=== PATIENT | female | born 1960 | race Caucasian/White ===

== ENCOUNTER 2016-05-02 12:21 | Emergency (ER) | payer BC ==
[~2016-05-02] VITALS: Wt 58.0 kg
[~2016-05-02 12:21] MED LIST: IBUP-1542 PO; [UNRECOGNIZED DRUG - CODE] PO
[2016-05-02 13:24] VITALS: TEMP 98.4
--- NOTE | 2016-05-02 14:02 | RADRPT ---
PROCEDURE: Chest Radiograph. CLINICAL INDICATION: Chest pain TECHNIQUE: Single frontal chest radiograph. COMPARISON: None available FINDINGS: The cardiomediastinal silhouette is within normal limits. No infiltrate or effusion is seen. Th e bones are intact. IMPRESSION: 1. Unremarkable chest radiograph. RPTAT: KK .Jamshid Laurent MD, MD Date Time Electronically viewed and signed by .Jamshid Laurent MD, on 05/02/2016 14:02 .B/
[2016-05-02 14:03] LABS: ADD SCAN DIFF NO
[2016-05-02 14:04] LABS: BASOPHILS % 0.4 % (0.0-2.0); EOSINOPHILS # 0.2 10^3/ul (0.0-0.5); EOSINOPHILS % 1.9 % (0.0-7.0); HEMATOCRIT 36.8 % (37.0-47.0); HEMOGLOBIN 12.9 g/dl (12.0-16.0); LYMPHOCYTES # 1.8 10^3/ul (0.8-2.9); LYMPHOCYTES % 23.5 % (15.0-51.0); MEAN CORPUSCULAR HEMOGLOBIN 30.4 pg (29.0-33.0); MEAN CORPUSCULAR HGB CONC 35.1 g/dl (32.0-37.0); MEAN CORPUSCULAR VOLUME 86.6 fl (82.0-101.0); MEAN PLATELET VOLUME 10.6 fl (7.4-10.4); MONOCYTE # 0.5 10^3/ul (0.3-0.9); MONOCYTES % 6.3 % (0.0-11.0); NEUTROPHIL # 5.3 10^3/ul (1.6-7.5); NEUTROPHILS % 67.6 % (39.0-77.0); PLATELET COUNT 241 10^3/UL (140-415); RED BLOOD COUNT 4.25 10^6/ul (4.20-5.40); RED CELL DISTRIBUTION WIDTH 12.3 % (11.5-14.5); WHITE BLOOD COUNT 7.8 10^3/ul (4.8-10.8)
[2016-05-02 14:13] LABS: CHLORIDE 103 mmol/L (97-110); POTASSIUM 4.3 mmol/L (3.5-5.1); SODIUM 140 mmol/L (135-144)
[2016-05-02 14:15] LABS: INR 0.92; PROTIME 12.4 Sec (12.2-14.2)
[2016-05-02 14:16] LABS: ANION GAP 14 (8-16); CARBON DIOXIDE 27 mmol/L (21-31); CREATININE 0.71 mg/dl (0.44-1.00); PARTIAL THROMBOPLASTIN TIME 24.7 Sec (25.0-35.0)
[2016-05-02 14:17] LABS: BLOOD UREA NITROGEN 19 mg/dl (7-20); CALCIUM 8.9 mg/dl (8.4-10.2); GLUCOSE 244 mg/dl (70-220)
[2016-05-02 14:25] LABS: CK-MB 0.66 ng/ml (0.0-2.4)
[2016-05-02 14:34] LABS: CREATINE KINASE < 20 IU/L (23-200); TROPONIN-I < 0.012 ng/ml (0.00-0.12)
[2016-05-02] MEDS ORDERED: BENA10TA48 PO (14:39)
[2016-05-02] MEDS ORDERED: METO50TA16 PO ×2 (14:39→14:53)
[2016-05-02] MEDS ORDERED: GLIP-95 PO (14:40)
[2016-05-02] MEDS ORDERED: ASPI-664 PO (14:40)
[2016-05-02] MEDS ORDERED: SIMV10TA PO (14:41)
[2016-05-02] MEDS ORDERED: MTF1000T PO (14:42)
[2016-05-02] MEDS ORDERED: METF500T4 PO (14:43)
--- NOTE | 2016-05-02 14:53 | ERD ---
ER Documentation Chief Complaint Date/Time DATE: 05/02/16 TIME: 14:50 Chief Complaint LEFT CHEST PAIN AND LEFT ARM PAIN WITH HIGH BLOOD PRESSURE. NO NEURO DEF HPI This is a 55-year-old female presents to the emergency room for evaluation of chest pain, and high blood pressure. The patient does state that she has intermittent chest pain on and off for the past year. She states that her chest pain today is no different from the chest pain she has had over the past year however she did run out of her medication, metoprolol. She states that she saw her blood pressure was elevated this morning. Although she had no headache or blurred vision she came to the ER for evaluation. ROS All systems reviewed and are negative except as per history of present illness. Medications Home Meds Reported Medications Metformin* (Glucophage*) 500 Mg Tab, 500 MG PO BID, #30 TAB 05/02/16 Simvastatin* (Zocor*) 10 Mg Tablet, 10 MG PO QHS, #30 TAB 05/02/16 Aspirin* (Aspirin* EC) 81 Mg Tablet.dr, 81 MG PO DAILY, TAB 05/02/16 Glipizide* (Glipizide*) 10 Mg Tablet, 10 MG PO QAM, TAB 05/02/16 Metoprolol Succinate* (Toprol XL*) 50 Mg Tab.er.24h, 50 MG PO DAILY, #30 TAB 05/02/16 Benazepril Hcl* (Benazepril Hcl*) 10 Mg Tablet, 10 MG PO DAILY, #30 TAB 05/02/16 Discontinued Reported Medications Metformin* (Glucophage*) 1,000 Mg Tablet, 1000 MG PO BID, #60 TAB 05/02/16 Aspirin (Ec Aspirin) 325 Mg Tablet.dr, 325 MG PO 02/10/11 Discontinued Scripts Ibuprofen* (Motrin*) 600 Mg Tab, 600 MG PO Q6H Y for PAIN AND OR ELEVATED TEMP, #30 Prov:PREETI MARTIN NP 10/10/14 Allergies Allergies: Coded Allergies: No Known Allergy (Unverified , 02/10/11) PMhx/Soc History of Surgery: No Anesthesia Reaction: No Hx Neurological Disorder: No Hx Respiratory Disorders: No Hx Cardiac Disorders: No Hx Psychiatric Problems: No Hx Miscellaneous Medical Probl: Yes (DIABETES) Hx Alcohol Use: No Hx Substance Use: No Hx Tobacco Use: No Physical Exam Vitals Vital Signs Date Time Temp Pulse Resp B/P Pulse Ox O2 Delivery O2 Flow Rate FiO2 05/02/16 12:27 98.2 80 21 180/74 99 Physical Exam INITIAL VITAL SIGNS: Reviewed by me GENERAL: The patient is well developed and appropriate for usual state of health in no apparent distress HEENT: Pupils equal, round, and reactive to light. EOMI. There is no scleral icterus. NECK: C-spine is soft and supple, there is no meningismus. There is no cervical lymphadenopathy. LUNGS: Clear to auscultation bilaterally. There are no rales, wheezes or rhonchi. HEART: Regular rate and rhythm, no murmurs, clicks, rubs or gallops. ABDOMEN: Soft, non-tender, non-distended. There are bowel sounds in all four quadrants. No rebound or guarding. EXTREMITIES: There is no peripheral cyanosis or edema. No focal swelling or erythema. NEUROLOGICAL: The patient moves all four extremities with 5/5 strength. Cranial nerves II - XII are intact. Normal gait. Alert and oriented SKIN: There is no apparent rash or petechiae. HEME/LYMPHATIC: There is no evidence of excessive bruising or lymphedema. PSYCHIATRIC: The patient does not appear anxious or depressed. Result Diagram: 05/02/16 1350 05/02/16 1350 Results 24 hrs Laboratory Tests Test 05/02/16 13:50 Activated Partial Thromboplast Time 24.7Sec Anion Gap 14 Basophils # 0.010^3/ul Basophils % 0.4% Blood Urea Nitrogen 19mg/dl Calcium Level 8.9mg/dl Carbon Dioxide Level 27mmol/L Chloride Level 103mmol/L Creatine Kinase < 20IU/L Creatine Kinase Index Creatinine 0.71mg/dl Creatinine Kinase MB (Mass) 0.66ng/ml Eosinophils # 0.210^3/ul Eosinophils % 1.9% Glucose Level 244mg/dl Hematocrit 36.8% Hemoglobin 12.9g/dl INR International Normalized Ratio 0.92 Lymphocytes # 1.810^3/ul Lymphocytes % 23.5% Mean Corpuscular Hemoglobin 30.4pg Mean Corpuscular Hemoglobin Concent 35.1g/dl Mean Corpuscular Volume 86.6fl Mean Platelet Volume 10.6fl Monocytes # 0.510^3/ul Monocytes % 6.3% Neutrophils # 5.310^3/ul Neutrophils % 67.6% Nucleated Red Blood Cells # 0.010^3/ul Nucleated Red Blood Cells % 0.0/100WBC Platelet Count 64762^3/UL Potassium Level 4.3mmol/L Prothrombin Time 12.4Sec Prothrombin Time Ratio 1.0 Red Blood Count 4.2510^6/ul Red Cell Distribution Width 12.3% Sodium Level 140mmol/L Troponin I < 0.012ng/ml White Blood Count 7.810^3/ul Procedures/MDM EKG: Rate/Rhythm: [Normal Sinus Rhythm] QRS, ST, T-waves: [No changes consistent w/ acute ischemia] Impression: [No evidence of ischemia or arrhythmia] Chest X-ray 1V Interpreted by me: Soft Tissue: No acute abnormalities Bones: No acute abnormalities Mediastinum/Cardiac Silhouette/Lungs: [No acute abnormalities] This 45-year-old female presents to the emergency room for evaluation of chest pain, and medication refill. The patient did run out of her metoprolol 15 mg. This patient is hemodynamically stable, no acute distress, not hypoxic, and EKG is nonischemic. Lab work also shows negative troponin. Chest x-ray is also clear. This patient was given Toradol with complete resolution of her pain. This patient will be discharged at this time with instructions to follow-up with her primary care physician to establish stress test as an outpatient. This patient will also be given a prescription for metoprolol 50 mg. Departure Diagnosis: Primary Impression: Chest pain Additional Impressions: Medication refill Hyperglycemia due to type 2 diabetes mellitus Condition: YESSICA Nava DO May 02, 2016 14:53
[2016-05-02 15:04] VITALS: BP 119/59; PULSE 67; RESP 13
== END 2016-05-02 15:09 | disposition home or self-care (01) ==
LOC: E/R 12:21
DX: R07.9 Chest pain, unspecified (principal); E10.65 Type 1 diabetes mellitus with hyperglycemia; Z76.0 Encounter for issue of repeat prescription; Z79.82 Long term (current) use of aspirin; Z79.84 Long term (current) use of oral hypoglycemic drugs
CPT/HCPCS: 36415; 71010; 80048; 82550; 82553; 84484; 85025; 85610; 85730; 93005; Z7502; Z7610

== ENCOUNTER 2016-06-26 05:27 | Emergency (ER) | payer BC ==
[~2016-06-26] VITALS: Wt 67.0 kg
[~2016-06-26 05:27] MED LIST changes: +ASPI-664 PO; +BENA10TA48 PO; +GLIP-95 PO; -IBUP-1542 PO; +METF500T4 PO; +METO50TA16 PO; +SIMV10TA PO; -[UNRECOGNIZED DRUG - CODE] PO
[2016-06-26] MEDS ORDERED: ASPIRIN 81 MG TAB PO STA (05:43)
[2016-06-26] MEDS ORDERED: SOD CHLORIDE 0.9% 1,000 ML IV STA (06:12)
--- NOTE | 2016-06-26 06:21 | ERD ---
ER Documentation Chief Complaint Date/Time DATE: 06/26/16 TIME: 06:13 Chief Complaint CP since 3AM HPI 56-year-old female, diabetic, hypertensive presents to the ED via ambulance for evaluation of chest pain. Yesterday afternoon her son was diagnosed with " heart cancer" and she understandably became upset and developed nonradiating, moderate, sharp and pressure-like left-sided chest pain with mild shortness of breath but no nausea, vomiting or diaphoresis. No relieving or exacerbating factors. Denies leg pain or swelling. No URI symptoms or cough. No abdominal pain or back pain. No headache or neck pain. Denies visual changes, focal weakness or numbness. No fevers or chills. ROS All systems reviewed and are negative except as per history of present illness. Medications Home Meds Active Scripts Metoprolol Succinate* (Toprol XL*) 50 Mg Tab.er.24h, 50 MG PO DAILY, #30 TAB Prov:YESSICA BONILLA 05/02/16 Reported Medications Metformin* (Glucophage*) 500 Mg Tab, 500 MG PO BID, #30 TAB 05/02/16 Simvastatin* (Zocor*) 10 Mg Tablet, 10 MG PO QHS, #30 TAB 05/02/16 Aspirin* (Aspirin* EC) 81 Mg Tablet.dr, 81 MG PO DAILY, TAB 05/02/16 Glipizide* (Glipizide*) 10 Mg Tablet, 10 MG PO QAM, TAB 05/02/16 Metoprolol Succinate* (Toprol XL*) 50 Mg Tab.er.24h, 50 MG PO DAILY, #30 TAB 05/02/16 Benazepril Hcl* (Benazepril Hcl*) 10 Mg Tablet, 10 MG PO DAILY, #30 TAB 05/02/16 Allergies Allergies: Coded Allergies: No Known Allergy (Unverified , 02/10/11) PMhx/Soc Reviewed in chart. As per HPI. History of Surgery: Yes (c section) Anesthesia Reaction: No Hx Neurological Disorder: No Hx Respiratory Disorders: No Hx Cardiac Disorders: No Hx Psychiatric Problems: No Hx Miscellaneous Medical Probl: Yes (DIABETES) Hx Alcohol Use: No Hx Substance Use: No Hx Tobacco Use: No Smoking Status: Never smoker FmHx No stroke or sudden cardiac . As per HPI. Physical Exam Vitals Vital Signs Date Time Temp Pulse Resp B/P Pulse Ox O2 Delivery O2 Flow Rate FiO2 06/26/16 06:34 84 16 91/53 96 Room Air 06/26/16 05:42 97.7 94 20 149/79 100 Physical Exam Const: Alert, anxious, crying in moderate distress. Head: Atraumatic Eyes: Normal Conjunctiva ENT: Normal External Ears, Nose and Mouth. Neck: Full range of motion. Nontender. No JVD. Resp: Breath sounds are equal and clear to auscultation bilaterally Cardio: Regular rate and rhythm, no murmurs Chest Wall: No chest wall tenderness, ecchymosis or bruising Abd: Soft, non tender, non distended. Normal bowel sounds. No rebound or guarding. No masses or abnormal pulsations. Skin: No petechiae or rashes Back: No midline or flank tenderness Ext: No cyanosis, or edema. No calf swelling or tenderness. Neur: Awake and alert. No focal deficit observed. Motor and sensory equal bilaterally. Psych: Anxious, crying. Denies suicidal or homicidal ideations. Result Diagram: 06/26/16 0552 06/26/16 0552 Results 24 hrs Laboratory Tests Test 06/26/16 05:52 06/26/16 08:15 White Blood Count 11.110^3/ul Red Blood Count 4.6810^6/ul Hemoglobin 14.5g/dl Hematocrit 40.7% Mean Corpuscular Volume 87.0fl Mean Corpuscular Hemoglobin 31.0pg Mean Corpuscular Hemoglobin Concent 35.6g/dl Red Cell Distribution Width 12.4% Platelet Count 27837^3/UL Mean Platelet Volume 11.6fl Neutrophils % 86.1% Lymphocytes % 7.9% Monocytes % 3.9% Eosinophils % 1.2% Basophils % 0.4% Nucleated Red Blood Cells % 0.0/100WBC Neutrophils # 9.610^3/ul Lymphocytes # 0.910^3/ul Monocytes # 0.410^3/ul Eosinophils # 0.110^3/ul Basophils # 0.010^3/ul Nucleated Red Blood Cells # 0.010^3/ul Sodium Level 136mmol/L Potassium Level 4.7mmol/L Chloride Level 103mmol/L Carbon Dioxide Level 22mmol/L Anion Gap 16 Blood Urea Nitrogen 22mg/dl Creatinine 0.71mg/dl Glucose Level 452mg/dl Calcium Level 9.7mg/dl Troponin I 0.026ng/ml Bedside Glucose 324mg/dL Current Medications Medications (Trade) Dose Ordered Sig/Brenda Route PRN Reason Start Time Stop Time Status Last Admin Dose Admin Aspirin 162 mg 162 mg ONCE STAT PO 06/26/16 05:43 06/26/16 05:45 DC 06/26/16 06:05 Sodium Chloride (NS) 1,000 ml @ 1,000 mls/hr Q1H STAT IV 06/26/16 06:12 06/26/16 07:11 DC 06/26/16 06:17 Lorazepam (Ativan) 1 mg ONCE ONCE IV 06/26/16 06:30 06/26/16 06:31 DC 06/26/16 06:17 Insulin Human Lispro (Humalog) 10 unit ONCE STAT SC 06/26/16 08:22 06/26/16 08:24 DC RHYTHM STRIP INTERPRETATION: Time: 06: 20. Sinus rhythm. Ventricular rate 73. No ectopy. Indication: Chest pain. EKG: TIME: 05:33. Sinus tachycardia ventricular rate 108. No ectopy. Normal OR QRS. No axis deviation. No ST-T wave changes. EP Interpretation: Sinus tachycardia otherwise normal ECG.. IMAGING: PROCEDURE: CHEST - 1 VIEW CLINICAL INDICATION: 56-year-old female with chest pain. TECHNIQUE: A single frontal AP portable view of the chest was performed. The images were reviewed on a PACS workstation. COMPARISON: Chest x-ray May 02 1016. FINDINGS: The cardiomediastinal silhouette has a normal appearance. There is no evidence for an infiltrate. There is no evidence for congestive heart failure. There is no evidence for pneumothorax mild degenerative changes are present within the spine. IMPRESSION: 1. No evidence for active cardiopulmonary disease. 2. Mild degenerative changes within the spine. .Arie Mortensen MD, MD Date Time Electronically viewed and signed by .Arie Mortensen MD, on 06/26/2016 06:28 .M/ Procedures/MDM DOCUMENTS REVIEWED: ED nurse, prior ED, prior records REEXAMINATION/REEVALUATION: Time: 08:30. Doing well. Sleeping but easily arousable. No further chest pain. Sinus rhythm without ectopy. MEDICAL DECISION MAKIN-year-old female, diabetic, hypertensive presents to the ED via ambulance for evaluation of chest pain. A broad differential for chest pain is considered but most likely secondary to anxiety and relieved completely with anxiolytics. No radiographic evidence of pneumonia or pneumothorax. No ischemic EKG changes or elevated troponin. Low risk for pulmonary embolism. Doubt aortic dissection. Diabetic hyperglycemia without DKA or HONK likely due to noncompliance. Improved with intravenous hydration and she was given her regular morning insulin dose of Humalog 10 units. Stable for discharge precautionary instructions and urgent outpatient follow-up within 72 hours for further risk stratification. Counseled patient regarding diagnostic workup, diagnosis and need for followup. Understands to return to ED if symptoms recur, worsen or any other concerns. Departure Diagnosis: Primary Impression: Chest pain with low risk for cardiac etiology Additional Impressions: Hyperglycemia due to type 2 diabetes mellitus Diabetes mellitus intermission coordinator insulin use: with snf use Qualified Code: E11.65 - Type 2 diabetes mellitus with hyperglycemia, with long-term current use of insulin Essential hypertension Condition: Stable (Improved) ROSALINA GUERRA MD June 26, 2016 06:20
--- NOTE | 2016-06-26 06:29 | RADRPT ---
PROCEDURE: CHEST - 1 VIEW CLINICAL INDICATION: 56-year-old female with chest pain. TECHNIQUE: A single frontal AP portable view of the chest was performed. The images were reviewed on a PACS workstation. COMPARISON: Chest x-ray May 02 1016. FINDINGS: The cardiomediastinal silhouette has a normal appearance. There is no evidence for an infiltrate. There is no evidence for congestive heart failure. There is no evidence for pneumothorax mild degene rative changes are present within the spine. IMPRESSION: 1. No evidence for active cardiopulmonary disease. 2. Mild degenerative changes within the spine. .Arie Mortensen MD, MD Date Time Electronically viewed and signed by .Arie Mortensen MD, on 06/26/2016 06:28 .Giselle/
[2016-06-26] MEDS ORDERED: LORAZEPAM 2 MG INJ IV ONE (06:30)
[2016-06-26 07:17] LABS: ADD SCAN DIFF NO
[2016-06-26 07:27] LABS: BASOPHILS % 0.4 % (0.0-2.0); EOSINOPHILS # 0.1 10^3/ul (0.0-0.5); EOSINOPHILS % 1.2 % (0.0-7.0); HEMATOCRIT 40.7 % (37.0-47.0); HEMOGLOBIN 14.5 g/dl (12.0-16.0); LYMPHOCYTES # 0.9 10^3/ul (0.8-2.9); LYMPHOCYTES % 7.9 % (15.0-51.0); MEAN CORPUSCULAR HGB CONC 35.6 g/dl (32.0-37.0); MEAN PLATELET VOLUME 11.6 fl (7.4-10.4); MONOCYTE # 0.4 10^3/ul (0.3-0.9); MONOCYTES % 3.9 % (0.0-11.0); NEUTROPHIL # 9.6 10^3/ul (1.6-7.5); NEUTROPHILS % 86.1 % (39.0-77.0); PLATELET COUNT 265 10^3/UL (140-415); RED BLOOD COUNT 4.68 10^6/ul (4.20-5.40); RED CELL DISTRIBUTION WIDTH 12.4 % (11.5-14.5); WHITE BLOOD COUNT 11.1 10^3/ul (4.8-10.8)
[2016-06-26 07:45] LABS: CALCIUM 9.7 mg/dl (8.4-10.2); CREATININE 0.71 mg/dl (0.44-1.00); POTASSIUM 4.7 mmol/L (3.5-5.1)
[2016-06-26 07:56] LABS: TROPONIN-I 0.026 ng/ml (0.00-0.12)
[2016-06-26] MEDS ORDERED: INSULIN LISPRO 100 UNIT/ML VIAL SC STA (08:22)
[2016-06-26] MEDS ORDERED: LORA-441 PO (08:45)
[2016-06-26] MEDS ORDERED: ASPI-664 PO (08:46)
[2016-06-26 11:42] VITALS: BP 102/58; PULSE 77; RESP 22
== END 2016-06-26 11:44 | disposition home or self-care (01) ==
LOC: E/R 05:27
DX: R07.9 Chest pain, unspecified (principal); E11.65 Type 2 diabetes mellitus with hyperglycemia; I10 Essential (primary) hypertension; Z79.82 Long term (current) use of aspirin; Z79.84 Long term (current) use of oral hypoglycemic drugs
CPT/HCPCS: 36415; 71010; 80048; 82962; 84484; 85025; 93005; 96372; 96374; J1815; J2060; J7030; Z7502; Z7610

== ENCOUNTER 2016-09-18 09:17 | Emergency (ER) | payer BC ==
[~2016-09-18] VITALS: Ht 157.5 cm; Wt 62.5 kg
[~2016-09-18 09:17] MED LIST changes: +IBUP-1542 PO; +LORA-441 PO; +MTF1000T PO; +[UNRECOGNIZED DRUG - CODE] PO
[2016-09-18 09:21] VITALS: Ht 157.5 cm; Wt 62.5 kg
[2016-09-18] MEDS ORDERED: CLOT30CR24 TOP (09:45)
[2016-09-18] MEDS ORDERED: IBUP-1542 PO (09:46)
[2016-09-18] MEDS ORDERED: CEPH500C PO (09:47)
[2016-09-18 10:12] VITALS: BP 143/76; PULSE 75
--- NOTE | 2016-09-18 10:28 | ERD ---
ER Documentation Chief Complaint Date/Time DATE: 09/18/16 TIME: 10:07 Chief Complaint right breast redness and itching since last night HPI This is a 56 y/o female that presents to the ER with multiple complaints. For the last month patient has had bilateral breast itchiness and scaling of her nipple. Right side is worse than left side. Patient denies any redness, swelling or discharge. She denies any skin changes. Patient is also complaining of a rash that it also occurred a month ago which is located across her buttock. Rash appeared like tiny blisters and has now gotten better however patient continues to have burning pain. Patient believes that this is an allergy, however has not come in contact with any new substances or foods. Patient denies any fevers or chills. Patient has not had a mammogram. She is also complaining of a prolapsed bladder. Patient had 12 children. ROS 12 point review of systems was done, all negative except per HPI. Medications Home Meds Active Scripts Cephalexin* (Cephalexin*) 500 Mg Capsule, 500 MG PO BID, #14 CAP Prov:TEMO BUCKLEY 09/18/16 Ibuprofen* (Ibuprofen*) 600 Mg Tablet, 600 MG PO Q6 for 3 Days, TAB Prov:TEMO BUCKLEY 09/18/16 Clotrimazole* (Clotrimazole* AF) 1% - 30 Gm Cream.gm., 1 APPLIC TOP BID for 7 Days, TUB Prov:TEMO BUCKLEY 09/18/16 Aspirin* (Aspirin* EC) 81 Mg Tablet.dr, 81 MG PO DAILY, #20 TAB Prov:ROSALINA GUERRA MD 06/26/16 Lorazepam* (Ativan*) 0.5 Mg Tablet, 0.5 MG PO Q8H Y for ANXIETY, #6 TAB Prov:ROSALINA GUERRA MD 06/26/16 Metoprolol Succinate* (Toprol XL*) 50 Mg Tab.er.24h, 50 MG PO DAILY, #30 TAB Prov:YESSICA BONILLA DO 05/02/16 Reported Medications Metformin* (Glucophage*) 500 Mg Tab, 500 MG PO BID, #30 TAB 05/02/16 Simvastatin* (Zocor*) 10 Mg Tablet, 10 MG PO QHS, #30 TAB 05/02/16 Aspirin* (Aspirin* EC) 81 Mg Tablet.dr, 81 MG PO DAILY, TAB 05/02/16 Glipizide* (Glipizide*) 10 Mg Tablet, 10 MG PO QAM, TAB 05/02/16 Metoprolol Succinate* (Toprol XL*) 50 Mg Tab.er.24h, 50 MG PO DAILY, #30 TAB 05/02/16 Benazepril Hcl* (Benazepril Hcl*) 10 Mg Tablet, 10 MG PO DAILY, #30 TAB 05/02/16 Allergies Allergies: Coded Allergies: No Known Allergy (Unverified , 02/10/11) PMhx/Soc History of Surgery: Yes (c section) Anesthesia Reaction: No Hx Neurological Disorder: No Hx Respiratory Disorders: No Hx Cardiac Disorders: No Hx Psychiatric Problems: No Hx Miscellaneous Medical Probl: Yes (DIABETES) Hx Alcohol Use: No Hx Substance Use: No Hx Tobacco Use: No Physical Exam Vitals Vital Signs Date Time Temp Pulse Resp B/P Pulse Ox O2 Delivery O2 Flow Rate FiO2 09/18/16 09:21 98.1 68 18 147/66 99 Physical Exam GENERAL: The patient is well developed and appropriate for usual state of health , in no apparent distress. HEENT: Atraumatic. BREAST: patient has scaly white lesions on bilateral nipples. areas of redness where patient has been scratching. no nipple discharge, no skin changes. no erythema or warmth to bilateral breasts. no masses. no axillary masses CHEST: Clear to auscultation bilaterally. There are no rales, wheezes or rhonchi. HEART: Regular rate and rhythm. No murmurs, clicks, rubs or gallops. NEURO: Alert and oriented. SKIN: there is a healing rash to the buttock in dermatome distribution. Procedures/MDM This is a 56-year-old female presents to the ER with multiple complaints. Patient states that she has had a month-long history of itchy breasts. Patient does have what appears to be a fungal infection of both breasts. Patient has been scratching extensively and she will be treated with clotrimazole. She will also be sent home with Keflex for any potential bacterial infection as patient does have diabetes and is at higher risk for infections. Patient will be sent home with ibuprofen for pain which has been caused by shingles to the buttocks. Patient for malignancy is low, however I did advise patient to get a mammogram as she is 52 years old and has never had one. I also gave patient a list of OB that she can go for her prolapsed bladder. Patient is afebrile and well-appearing I doubt sepsis. Doubt deep space infection. Patient is to follow-up with her primary care doctor within 1-2 days return to ER sooner if symptoms worsen. My medical decision making shared with the patient she understands and agrees with plan. Departure Diagnosis: Primary Impression: Breast pain Condition: Stable Patient Instructions: Breast Self-Exam (BSE) Referrals: DEJA TROY M.D., ANDREA J MD Additional Instructions: Llame al doctor VIVEK y sunita elizabeth THOMAS PARA DENTRO DE 1-2 MOTTA.Dgale a la secretaria que nosotros le instruimos hacer esta thomas.Avise o llame si tarango condicin se empeora antes de la thomas. Regresa aqui si peor o no mejor. TEMO BUCKLEY Sep 18, 2016 10:28
== END 2016-09-18 10:14 | disposition home or self-care (01) ==
LOC: FTE 09:17
DX: N64.4 Mastodynia (principal); E11.9 Type 2 diabetes mellitus without complications; Z79.82 Long term (current) use of aspirin; Z79.84 Long term (current) use of oral hypoglycemic drugs
CPT/HCPCS: 99283